=== PATIENT | female | born 1990 | race Two or more races ===

== ENCOUNTER 2021-10-28 06:40 | Day surgery (SDC) | payer OTHER ==
[~2021-10-28 06:40] MED LIST: TAMOX PO
== END 2021-10-28 15:05 | disposition home or self-care (01) ==
LOC: CIR.AMB 06:40
PROVIDERS: ATTEND Surgery
DX: C50.511 Malignant neoplasm of lower-outer quadrant of right female breast (principal); Z17.0 Estrogen receptor positive status [ER+]; R59.0 Localized enlarged lymph nodes; M41.86 Other forms of scoliosis, lumbar region; F12.90 Cannabis use, unspecified, uncomplicated; Z42.1 Encounter for breast reconstruction following mastectomy

== ENCOUNTER 2022-06-16 05:40 | Day surgery (SDC) | payer OTHER ==
[~2022-06-16] VITALS: Ht 167.6 cm; Wt 59.9 kg
== END 2022-06-16 13:05 | disposition home or self-care (01) ==
LOC: CIR.AMB 05:40
PROVIDERS: ATTEND Plastic Surgery
DX: N64.82 Hypoplasia of breast (principal); N64.81 Ptosis of breast; L90.5 Scar conditions and fibrosis of skin; D05.11 Intraductal carcinoma in situ of right breast; Z90.11 Acquired absence of right breast and nipple; F12.90 Cannabis use, unspecified, uncomplicated; E16.2 Hypoglycemia, unspecified; F41.9 Anxiety disorder, unspecified; Z20.822 Contact with and (suspected) exposure to COVID-19; Z86.16 Personal history of COVID-19